=== PATIENT | female | born 1995 | race Caucasian/White ===

== ENCOUNTER 2017-11-14 00:07 | Emergency (ER) | payer SELFPAY ==
--- NOTE | 2017-11-14 01:33 | EDPHY ---
H & P Stated Complaint: 3 weeks late, spotting 15 days, dizzy Time Seen by Provider: 11/14/17 00:39 HPI/ROS: Chief Complaint: Vaginal spotting HPI: 22-year-old who is presenting with vaginal spotting for the last 12 days. Her last normal menstrual cycle was September 27. She has taken 2 tests at home which of negative. She is sexually active. Denies any pelvic pain. No abnormal vaginal discharge. No urinary burning or urgency or frequency. No nausea or vomiting. Has had irregular menstrual cycles in the past associated with stress but has not been in a particularly stressful situation recently. Has noted some subjective weight loss based on her pants feeling a bit looser over the last couple of weeks. No excess thirst or urination. No heat or cold intolerance. ROS: 10 point Review of Systems is negative except as noted in the HPI. PMH: Denies Social History: No smoking, occasional alcohol, occasional marijuana Family History: non-contributory Physical Exam: Gen: Awake, Alert, No Distress HEENT: Nose: no rhinorrhea Eyes: PERRLA, EOMI Mouth: Moist mucosa Neck: Supple, no JVD Chest: nontender, lungs clear to auscultation Heart: S1, S2 normal, no murmur Abd: Soft, non-tender, no guarding Back: no CVA tenderness, no midline tenderness Ext: no edema, non-tender Skin: no rash Neuro: CN II-XII intact, Sensation grossly intact, Strength 5/5 in bilateral upper and lower extremities - Personal History LMP (Females 10-55): Over 28 Days Ago Current Tetanus/Diphtheria Vaccine: Yes - Medical/Surgical History Hx Asthma: No Hx Chronic Respiratory Disease: No Hx Diabetes: No Hx Cardiac Disease: No Hx Renal Disease: No Hx Cirrhosis: No Hx Alcoholism: No Hx HIV/AIDS: No Hx Splenectomy or Spleen Trauma: No Other PMH: denies - Social History Smoking Status: Never smoked Constitutional: Initial Vital Signs Temperature (C) 36.9 C 11/14/17 00:08 Heart Rate 112 H 11/14/17 00:08 Respiratory Rate 18 11/14/17 00:08 Blood Pressure 119/75 11/14/17 00:08 O2 Sat (%) 96 11/14/17 00:08 O2 Delivery Mode Room Air Allergies/Adverse Reactions: No Known Allergies Allergy (Unverified 11/14/17 00:09) Home Medications: Medication Instructions Recorded NK [No Known Home Meds] 11/14/17 Medical Decision Making ED Course/Re-evaluation: 22-year-old female presenting with 12 days of spotting. She is not here. Urinalysis is negative for UTI. Abdomen is soft and benign. Will refer to OBGYN in follow-up for abnormal vaginal bleeding. - Data Points Laboratory Results: 11/14/17 00:20 Urine Color YELLOW Urine Appearance HAZY Urine pH 5.0 (5.0-7.5) Ur Specific [place] 1.031 H (1.002-1.030) Urine Protein 1+ H (NEGATIVE) Urine Ketones 2+ H (NEGATIVE) Urine Blood 1+ H (NEGATIVE) Urine Nitrate NEGATIVE (NEGATIVE) Urine Bilirubin NEGATIVE (NEGATIVE) Urine Urobilinogen NEGATIVE EU EU (0.2-1.0) Ur Leukocyte Esterase NEGATIVE (NEGATIVE) Urine RBC 15-25 /hpf H /hpf (0-3) Urine WBC 1-3 /hpf /hpf (0-3) Ur Epithelial Cells TRACE /lpf /lpf (NONE-1+) Calcium Oxalate Crystal PRESENT /hpf /hpf (NONE-1+) Urine Mucus TRACE /lpf /lpf (NONE-1+) Urine Glucose NEGATIVE (NEGATIVE) Departure - Departure Disposition: Home, Routine, Self-Care Clinical Impression: Abnormal vaginal bleeding Condition: Good Instructions: Dysfunctional Uterine Bleeding (ED) Additional Instructions: Follow up with OBGYN in 3-4 days for further evaluation. Return to the emergency department for increasing heavy bleeding, soaking multiple pads an hour, lightheadedness, fainting, worsening abdominal pain, fevers, chills, or any other concerns. Referrals: Devora Fajardo MD [Medical Doctor] - As per Instructions
[2017-11-14 01:59] VITALS: BP 112/69
== END 2017-11-14 02:01 | disposition home or self-care (01) ==
DX: N93.9 Abnormal uterine and vaginal bleeding, unspecified (principal)